=== PATIENT | male | born 1950 | race Two or more races ===

== ENCOUNTER 2017-11-14 12:12 | Emergency (ER) | payer MEDICARE ==
[2017-11-14] MEDS ORDERED: CLINDAMYCIN PHOSPHATE 150 MG/ML VIAL IM ONE (13:03)
[2017-11-14] MEDS ORDERED: KETOROLAC TROMETHAMINE 60 MG/2 ML VIAL IM ONE ×2 (13:03→13:10)
[2017-11-14 13:17] LABS: Hematocrit 45.7 % (42.0-52.0); Hemoglobin 15.6 gm/dL (13.5-18.0); Mean Cell Volume 87.4 fl (78-100); Mean Corpuscular Hemoglobin 29.8 pg (27-31); Mean Corpuscular Hgb Conc 34.1 g/dl (32-36); Mean Platelet Volume 9.1 fl (6.0-9.5); Neutrophil # 4.9 K/mm3 (1.3-6.0); Neutrophil % 61.8 % (42-75.0); Platelet Count 263 K/mm3 (150-450); Red Blood Count 5.23 M/mm3 (4.7-6.0); White Blood Count 7.8 K/mm3 (4.0-10.5)
--- NOTE | 2017-11-14 13:20 | ERNOTE ---
Integumentary HPI - Narrative Date of Service: 11/14/17 - General Presenting Symptoms: rash Time Seen by Provider: 11/14/17 12:35 Source: patient Exam Limitations: no limitations - Immun/Allergies/Home Medications Immunizations: IMMUNIZATION HX Immunizations Up to Date No History of Influenza Vaccine Yes Hx Pneumococcal Vaccination No Allergies/Adverse Reactions: Allergies Allergy/AdvReac Type Severity Reaction Status Date / Time No Known Allergies Allergy Verified 11/14/17 12:28 Home Medications: HOME MEDICATIONS Cyanocobalamin [Vitamin B-12] 1,000 mcg PO DAILY 02/03/15 [Last Taken Unknown] Fish Oil/Borage/Flax/Om3,6,9#1 [Doyle 3-6-9 1,200 mg Softgel] 1,200 mg PO 3XW [Last Taken Unknown] Multivitamins [Multivitamin Enrrique] 1 cap PO DAILY 02/03/15 [Last Taken Unknown] Naproxen [Naprosyn] 500 mg PO BID PRN #60 tab 11/14/17 [Last Taken Unknown] Sulfamethoxazole/Trimethoprim [Bactrim Ds] 1 tab PO BID #28 tab 11/14/17 [Last Taken Unknown] Tadalafil [Cialis] 10 mg PO PRN PRN 11/14/17 [Last Taken Unknown] - History of Present Illness Narrative: Pt. comes in with c/o swelling, pain, and rash of L hand and arm for 6 days after he was cutting some tree limbs and noticed the reciprocal saw burned his palm of his hand. Pt. denies any SOB, CP, NVD, fever, alleviating or aggravating factors or prehospital treatment. Location: Reports: upper extremity - L Quality: Reports: painful Severity: moderate Exposure: Reports: other - injury to L hand Modifying Factors - (Improves): Reports: nothing Modifying Factors - (Worsens): Reports: nothing Associated Symptoms: Reports: rash. Denies: fever Prior Treatment: Denies: recently seen, treated by physician, recently hospitalized, currently on antibiotics Review of Systems - Review of Systems Constitutional: Present: no symptoms reported. Absent: fever, chills, fatigue, malaise, weight loss EYE: Present: no symptoms reported ENT: Present: no symptoms reported Respiratory: Present: no symptoms reported. Absent: shortness of breath, cough , wheezing Cardiology: Present: no symptoms reported. Absent: chest pain, palpitations, edema Gastrointestinal/Abdominal: Present: no symptoms reported. Absent: nausea, vomiting, diarrhea Genitourinary: Present: no symptoms reported. Absent: frequency, discharge Musculoskeletal: Present: muscle stiffness - L forearm. Absent: back pain, muscle pain, joint pain Skin: Present: rash - L hand to L axilla Neurological: Present: no symptoms reported Endocrine: Present: no symptoms reported Hematologic/Lymphatic: Present: swollen glands - L axillary All Other Systems: All systems neg except as marked - Patient's Past Medical History Patient History - Medical: No pertinent hx, GERD Patient History - Cardiac/Respiratory: No pertinent hx Patient History - Cancer: No Hx of Cancer Patient History - Surgical Procedures: Colonoscopy Patient History - Other: None - Family History Mother Family History - Medical: Father Family History - Medical: , Seizures Family History - Cardiac/Respiratory: COPD - Social History Abuse History: No History of abuse Psych History: No pertinent hx Smoking Status: Former smoker Have you smoked in the past 12 months: No Alcohol Use: occasionally Drug Use: marijuana - Immunizations Immunizations Up to Date: No Hx Pneumococcal Vaccination: No History of Influenza Vaccine: Yes Physical Exam - Physical Exam General Appearance: Present: wd/wn, alert, no apparent distress Head Exam: Present: normal inspection, no evidence of injury Eye Exam: Normal inspection: bilateral Ears, Nose, Throat: Present: normal ENT inspection Neck: Present: normal inspection, nontender, supple, full range of motion Respiratory: Present: no respiratory distress, normal breath sounds, no accessory muscle use, chest nontender, lungs clear Cardiovascular/Chest: Present: regular rate, rhythm, no murmur, normal peripheral pulses Back Exam: Present: normal inspection Extremity Exam: Present: extremity edema - L arm and hand, other - redness L hand between 4th and 5th fingers extending proximally to axilla Neurological Exam: Present: alert, oriented, normal mood/affect, no motor/ sensory deficits Skin Exam: Present: warm/dry, skin rash - see above ED Progress - Results and Orders Patient's Lab Results:: I have reviewed the patient's lab results. - Vital Signs Patient's Vital Signs:: I have reviewed the patient's vital signs. Vital Signs: Vital Signs 11/14/17 12:24 Temperature 37.2 C Pulse Rate 75 Respiratory 16 Rate Blood Pressure 178/94 O2 Sat by Pulse 98 Oximetry - Progress/Reassessment Chief Complaint: Cellulitis Progress:: Unchanged Departure Clinical Impression: Cellulitis Qualifiers: Site of cellulitis: extremity Site of cellulitis of extremity: upper extremity Laterality: left Qualified Code(s): L03.114 - Cellulitis of left upper limb - Departure Disposition: Home self-care Condition: Good Instructions: Cellulitis, Adult, [id number] Additional Instructions: Please follow up with primary provider in 2-3 days if not improving Referrals: Marietta Hernandez MD [Primary Care Provider] - Prescriptions: Naproxen [Naprosyn] 500 mg PO BID PRN #60 tab PRN Reason: Pain Sulfamethoxazole/Trimethoprim [Bactrim Ds] 1 tab PO BID #28 tab
[2017-11-14 13:30] LABS: Albumin * 4.2 gm/dl (3.4-5.0); Anion Gap 10.5 mmol/L (6.8-13.8); Bilirubin, Total 0.9 mg/dL (0.0-1.1); CRP 0.9 mg/dL (0.0-0.9); Calcium * 8.5 mg/dL (7.9-10.9); Carbon Dioxide 27.5 mmol/L (24-32.6); Total Protein 8.5 gm/dL (6.2-8.2); Uric Acid 4.1 mg/dL (2.6-7.2)
[2017-11-14 14:00] VITALS: BP 174/88
== END 2017-11-14 14:01 | disposition home or self-care (01) ==
LOC: ER 12:12
DX: L03.114 Cellulitis of left upper limb (principal); Z87.891 Personal history of nicotine dependence